=== PATIENT | female | born 1995 | race Caucasian/White ===

== ENCOUNTER 2023-04-15 16:19 | Emergency (ER) | payer OTHER ==
[~2023-04-15] VITALS: Ht 170.2 cm; Wt 73.6 kg
[2023-04-15 19:10] VITALS: O2SAT 95
[2023-04-15 20:03] VITALS: BP 122/78; TEMP 98.4; O2SAT 97
== END 2023-04-15 20:04 | disposition home or self-care (01) ==
LOC: M ED 16:19
DX: U07.1 COVID-19 (principal); R01.1 Cardiac murmur, unspecified

== ENCOUNTER 2023-10-10 19:10 | Emergency (ER) | payer OTHER ==
[~2023-10-10] VITALS: Ht 167.6 cm; Wt 73.0 kg
[2023-10-11 01:02] VITALS: BP 124/73; TEMP 97.4; O2SAT 98
== END 2023-10-11 01:36 | disposition home or self-care (01) ==
LOC: M ED 19:10
DX: M79.604 Pain in right leg (principal); I83.90 Asymptomatic varicose veins of unspecified lower extremity

== ENCOUNTER → 2024-01-24 | Outpatient (CLI) | payer OTHER ==
[2024-01-24 12:56] LABS: HEMATOCRIT 41.1 % (36.0-47.0); HEMOGLOBIN 13.7 g/dl (12.0-15.5); MEAN CORPUSCULAR HEMOGLOBIN 28.5 pg (27.0-33.0); MEAN CORPUSCULAR HGB CONC 33.3 g/dl (32.0-36.5); MEAN CORPUSCULAR VOLUME 85.6 fl (80.0-96.0); PLATELET COUNT, AUTOMATED 212 10^3/uL (150-450); WHITE BLOOD COUNT 8.6 10^3/uL (4.0-10.0)
[2024-01-24 13:28] LABS: HIV 1&2 SCREEN NEGATIVE (NEGATIVE)
[2024-01-24 13:36] LABS: HEPATITIS C VIRUS ABY INDEX < 0.02 INDEX (<0.8)
[2024-01-24 14:23] LABS: GC DNA AMPLIFICATION NEGATIVE (NEGATIVE)
== END ==
LOC: M PLALAB 10:23
PROVIDERS: ATTEND Obstetrics & Gynecology
DX: Z34.01 Encounter for supervision of normal first pregnancy, first trimester (principal); Z31.430 Encounter of female for testing for genetic disease carrier status for procreative management

== ENCOUNTER → 2024-02-21 | Outpatient (CLI) | payer OTHER | LOC: M PLALAB 08:38 | PROVIDERS: ATTEND Obstetrics & Gynecology | DX: Z34.80 Encounter for supervision of other normal pregnancy, unspecified trimester (principal) ==

== ENCOUNTER → 2024-03-22 | Outpatient (CLI) | payer OTHER | LOC: M WHC 07:52 | PROVIDERS: ATTEND Obstetrics & Gynecology | DX: Z34.92 Encounter for supervision of normal pregnancy, unspecified, second trimester (principal) ==

== ENCOUNTER → 2024-03-26 | Outpatient (REF) | payer OTHER | LOC: M SFHCWAGY 12:44 | PROVIDERS: ATTEND Obstetrics & Gynecology | DX: Z34.02 Encounter for supervision of normal first pregnancy, second trimester (principal) ==

== ENCOUNTER → 2024-03-30 | Outpatient (CLI) | payer OTHER | LOC: M LAB 08:40 | PROVIDERS: ATTEND Obstetrics & Gynecology | DX: Z34.80 Encounter for supervision of other normal pregnancy, unspecified trimester (principal) ==

== ENCOUNTER → 2024-04-01 | Outpatient (REF) | payer OTHER ==
[2024-04-01 14:57] LABS: Trichomonas vaginalis (AMP) NOT DETECTED (NEGATIVE)
[2024-04-01 15:20] LABS: GC DNA AMPLIFICATION NEGATIVE (NEGATIVE)
== END ==
LOC: M SFHCWAGY 12:42
PROVIDERS: ATTEND Obstetrics & Gynecology
DX: L29.2 Pruritus vulvae (principal); R30.0 Dysuria

== ENCOUNTER → 2024-04-20 | Outpatient (CLI) | payer OTHER ==
[2024-04-20 09:22] LABS: HEMATOCRIT 33.6 % (36.0-47.0); MEAN CORPUSCULAR HEMOGLOBIN 29.4 pg (27.0-33.0); MEAN CORPUSCULAR HGB CONC 32.7 g/dl (32.0-36.5); MEAN CORPUSCULAR VOLUME 89.8 fl (80.0-96.0); PLATELET COUNT, AUTOMATED 176 10^3/uL (150-450); RED BLOOD COUNT 3.74 10^6/uL (4.00-5.40); WHITE BLOOD COUNT 7.7 10^3/uL (4.0-10.0)
[2024-04-20 10:15] LABS: HIV 1&2 SCREEN NEGATIVE (NEGATIVE)
[2024-04-20 10:23] LABS: HEPATITIS C VIRUS ABY INDEX < 0.02 INDEX (<0.8)
[2024-04-20 10:36] LABS: GC DNA AMPLIFICATION NEGATIVE (NEGATIVE)
== END ==
LOC: M LAB 08:22
PROVIDERS: ATTEND Obstetrics & Gynecology
DX: Z34.02 Encounter for supervision of normal first pregnancy, second trimester (principal)

== ENCOUNTER → 2024-04-23 | Outpatient (CLI) | payer OTHER | LOC: M RAD 15:58 | PROVIDERS: ATTEND Obstetrics & Gynecology | DX: Z34.02 Encounter for supervision of normal first pregnancy, second trimester (principal) ==

== ENCOUNTER → 2024-04-30 | Outpatient (CLI) | payer OTHER | LOC: M PLALAB 10:39 | PROVIDERS: ATTEND Obstetrics & Gynecology | DX: Z34.02 Encounter for supervision of normal first pregnancy, second trimester (principal) ==

== ENCOUNTER 2024-07-03 17:29 | Outpatient (CLI) | payer OTHER ==
[~2024-07-03] VITALS: Ht 167.6 cm; Wt 79.6 kg
[2024-07-03] MEDS ORDERED: HOME MED LIST COMPLETE! XX SCH (17:55)
[2024-07-03] MEDS ORDERED: ACET500P3 PO (17:57)
[2024-07-03] MEDS ORDERED: OMEP10CASR PO (17:57)
[2024-07-03] MEDS ORDERED: PRENTAB9 PO (17:57)
[2024-07-03] MEDS: FIORICET TAB PO ONE (18:20)
== END 2024-07-03 19:08 | disposition home or self-care (01) ==
LOC: M LDO 17:29
PROVIDERS: ATTEND Advanced Practice Midwife
DX: O26.893 Other specified pregnancy related conditions, third trimester (principal); R51.9 Headache, unspecified; Z3A.34 34 weeks gestation of pregnancy
CPT/HCPCS: 59025; G0463

== ENCOUNTER 2024-07-09 19:59 | Outpatient (CLI) | payer OTHER ==
[~2024-07-09] VITALS: Ht 167.6 cm; Wt 81.0 kg
[~2024-07-09 19:59] MED LIST: ACET500P3 PO; OMEP10CASR PO; PRENTAB9 PO
[2024-07-09 20:15] VITALS: BP 128/79
== END 2024-07-09 20:43 | disposition home or self-care (01) ==
LOC: M LDO 19:59
PROVIDERS: ATTEND Specialist
DX: O36.8130 Decreased fetal movements, third trimester, not applicable or unspecified (principal); Z3A.34 34 weeks gestation of pregnancy
CPT/HCPCS: 59025; 76815; G0463

== ENCOUNTER → 2024-07-18 | Outpatient (REF) | payer OTHER | LOC: M SFHCWAGY 12:28 | PROVIDERS: ATTEND Obstetrics & Gynecology | DX: Z36.89 Encounter for other specified antenatal screening (principal); Z3A.36 36 weeks gestation of pregnancy ==

== ENCOUNTER 2024-07-22 20:28 | Outpatient (CLI) | payer OTHER ==
[~2024-07-22] VITALS: Ht 167.6 cm; Wt 85.1 kg
[2024-07-22 20:42] VITALS: BP 146/86
[2024-07-22 20:57] VITALS: BP 132/79
[2024-07-22 21:14] LABS: BASO % 0.3 % (0.0-1.0); EOS # 0.1 10^3/uL (0.0-0.5); HEMATOCRIT 32.4 % (36.0-47.0); HEMOGLOBIN 10.9 g/dl (12.0-15.5); LYMPH # 1.6 10^3/uL (1.5-5.0); LYMPH % 16.8 % (24.0-44.0); MEAN CORPUSCULAR HEMOGLOBIN 29.5 pg (27.0-33.0); MEAN CORPUSCULAR HGB CONC 33.6 g/dl (32.0-36.5); MEAN CORPUSCULAR VOLUME 87.8 fl (80.0-96.0); MONO % 10.6 % (2.0-8.0); NEUTROPHILS # 6.8 10^3/uL (1.5-8.5); NEUTROPHILS % 69.7 % (36.0-66.0); PLATELET COUNT, AUTOMATED 170 10^3/uL (150-450); RED BLOOD COUNT 3.69 10^6/uL (4.00-5.40); WHITE BLOOD COUNT 9.7 10^3/uL (4.0-10.0)
[2024-07-22 21:16] VITALS: BP 131/77
[2024-07-22 21:23] LABS: TOTAL PROTEIN,RANDOM URINE 18.8 MG/DL (0.0-14.0)
[2024-07-22 21:27] VITALS: BP 127/70
[2024-07-22 21:28] LABS: CREATININE,RANDOM URINE 79.2 MG/DL
[2024-07-22 21:38] LABS: URIC ACID 4.9 MG/DL (3.1-7.8)
[2024-07-22 21:40] LABS: LDH LACTATE DEHYDROGENASE 135 U/L (120-246)
[2024-07-22 21:41] LABS: ALT/SGPT 27 U/L (7.0-40); AST/SGOT 21 U/L (<34); BILIRUBIN,TOTAL 0.2 MG/DL (0.3-1.2); GLOMERULAR FILTRATION RATE > 60.0 (>60)
[2024-07-22 21:42] VITALS: BP 124/74
[2024-07-22] MEDS: diphenhydrAMINE 50MG CAP PO ONE (22:13)
[2024-07-22] MEDS: METOCLOPRAMIDE 10MG TAB PO ONE (22:13)
== END 2024-07-22 22:15 | disposition home or self-care (01) ==
LOC: M LDO 20:28
PROVIDERS: ATTEND Advanced Practice Midwife
DX: O13.3 Gestational [pregnancy-induced] hypertension without significant proteinuria, third trimester (principal); O99.352 Diseases of the nervous system complicating pregnancy, second trimester; G43.009 Migraine without aura, not intractable, without status migrainosus; R60.9 Edema, unspecified; Z3A.36 36 weeks gestation of pregnancy
CPT/HCPCS: 59025; 76815; 82247; 82570; 83615; 84156; 84450; 84460; 84550; 85025; G0463

== ENCOUNTER 2024-07-23 22:20 | Outpatient (CLI) | payer OTHER ==
[~2024-07-23] VITALS: Ht 167.6 cm; Wt 83.7 kg
[2024-07-23 22:41] VITALS: BP 138/83
[2024-07-23] MEDS ORDERED: HOME MED LIST COMPLETE! XX SCH (22:45)
[2024-07-23] MEDS ORDERED: LR 1,000 ML IV SCH (22:55)
[2024-07-23] MEDS: LACTATED RINGER'S 1000 ML IV STA (23:05)
[2024-07-23] MEDS: ONDANSETRON 4MG 2ML VIAL IV PRN (23:12)
[2024-07-23 23:23] LABS: HEMATOCRIT 34.5 % (36.0-47.0); HEMOGLOBIN 11.4 g/dl (12.0-15.5); MEAN CORPUSCULAR HEMOGLOBIN 28.4 pg (27.0-33.0); PLATELET COUNT, AUTOMATED 188 10^3/uL (150-450); RED BLOOD COUNT 4.01 10^6/uL (4.00-5.40); WHITE BLOOD COUNT 9.1 10^3/uL (4.0-10.0)
[2024-07-23 23:30] LABS: APPEARANCE, URINE CLOUDY (CLEAR); BACTERIA, URINE AUTO 1+ (NEGATIVE); BILIRUBIN, URINE AUTO NEGATIVE (NEGATIVE); BLOOD, URINE BLOOD NEGATIVE (NEGATIVE); COLOR, URINE YELLOW (YELLOW); GLUCOSE, URINE (UA) AUTO NEGATIVE (NEGATIVE); KETONE, URINE AUTO NEGATIVE (NEGATIVE); LEUKOCYTE ESTERASE, URINE AUTO 2+ (NEGATIVE); MUCUS, URINE SMALL (NEGATIVE); NITRITE, URINE AUTO NEGATIVE (NEGATIVE); PROTEIN, URINE AUTO NEGATIVE (NEGATIVE); RBC, URINE AUTO 2 /HPF (0-3); SPECIFIC GRAVITY URINE AUTO 1.016 (1.002-1.035); SQUAMOUS EPITHELIAL CELL UR AU 22 /HPF (0-6); UROBILINOGEN, URINE AUTO 0.2 mg/dL (0.0-2.0); WBC, URINE AUTO 6 /HPF (0-3)
[2024-07-23 23:58] LABS: AMYLASE 80 U/L (30-118)
[2024-07-24 00:03] LABS: ALBUMIN 2.6 G/DL (3.2-5.2); ALKALINE PHOSPHATASE 81 U/L (35-104); ALT/SGPT 29 U/L (7.0-40); AST/SGOT 46 U/L (<34); BILIRUBIN,TOTAL 0.2 MG/DL (0.3-1.2); BLOOD UREA NITROGEN 9 MG/DL (9-23); CARBON DIOXIDE LEVEL 21 MMOL/L (20-31); CHLORIDE LEVEL 109 MMOL/L (98-107); CREATININE FOR GFR 0.35 MG/DL (0.55-1.30); GLOMERULAR FILTRATION RATE > 60.0 (>60); GLUCOSE, FASTING 80 MG/DL (60-100); LIPASE 36 U/L (12-53); POTASSIUM SERUM 5.2 MMOL/L (3.5-5.1); SODIUM LEVEL 140 MMOL/L (136-145); TOTAL PROTEIN 6.1 G/DL (5.7-8.2)
[2024-07-24 00:18] VITALS: BP 125/76
== END 2024-07-24 01:00 | disposition home or self-care (01) ==
LOC: M LDO 22:20
PROVIDERS: ATTEND Obstetrics & Gynecology
DX: O26.893 Other specified pregnancy related conditions, third trimester (principal); O21.8 Other vomiting complicating pregnancy; R19.7 Diarrhea, unspecified; O13.3 Gestational [pregnancy-induced] hypertension without significant proteinuria, third trimester; Z3A.37 37 weeks gestation of pregnancy
CPT/HCPCS: 59025; 80053; 81001; 82150; 83690; 85027; 96374; G0463; J2405

== ENCOUNTER → 2024-07-24 | Outpatient (CLI) | payer OTHER ==
[~2024-07-24] MED LIST changes: +ACET-683 PO; +IBUP80TA PO; +SERT25TA85 PO
== END ==
LOC: M WHC 10:36
PROVIDERS: ATTEND Obstetrics & Gynecology
DX: O28.8 Other abnormal findings on antenatal screening of mother (principal)

== ENCOUNTER 2024-07-25 07:19 | Inpatient (IN) | payer OTHER ==
[~2024-07-25] VITALS: Ht 167.6 cm; Wt 85.1 kg
[2024-07-25] VITALS (26 sets, daily range): BP systolic 110–167; BP diastolic 59–91
[~2024-07-25 07:19] MED LIST changes: -ACET-683 PO; -IBUP80TA PO; -SERT25TA85 PO
[2024-07-25] MEDS ORDERED: HOME MED LIST COMPLETE! XX SCH (07:35)
[2024-07-25 08:30] LABS: HEMOGLOBIN 11.2 g/dl (12.0-15.5); MEAN CORPUSCULAR HEMOGLOBIN 28.6 pg (27.0-33.0); MEAN CORPUSCULAR HGB CONC 32.9 g/dl (32.0-36.5); MEAN CORPUSCULAR VOLUME 86.7 fl (80.0-96.0); PLATELET COUNT, AUTOMATED 169 10^3/uL (150-450); RED BLOOD COUNT 3.92 10^6/uL (4.00-5.40); WHITE BLOOD COUNT 7.9 10^3/uL (4.0-10.0)
[2024-07-25 09:29] LABS: HIV 1&2 SCREEN NEGATIVE (NEGATIVE)
[2024-07-25] MEDS ORDERED: OXYTOCIN INJ 10UNITS/ML 1ML VIAL IV PRN (11:15)
[2024-07-25] MEDS: miSOPROStol 25MCG 1/4 TABLET BUC ONE (11:37)
[2024-07-25] MEDS: LR 1,000 ML IV SCH (16:29)
[2024-07-25] MEDS: OXYTOCIN DRIP 30 UNITS in IV 1 EA IV SCH (16:29)
[2024-07-25] MEDS ORDERED: ePHEDrine SULFATE 25 MG/5 ML(5MG/ML) SYRINGE IVP PRN (21:25)
[2024-07-25] MEDS ORDERED: NALOXONE INJ 0.4MG/1ML VIAL IV PRN (21:25)
[2024-07-25] MEDS ORDERED: LR 500 ML IV PRN (21:25)
[2024-07-25] MEDS ORDERED: diphenhydrAMINE 50MG/ML VIAL IV PRN (21:25)
[2024-07-25] MEDS ORDERED: EPIDURAL/PCA KEYS XX PRN (21:25)
[2024-07-25] MEDS: FENTANYL/ROPIVACAINE/NACL BAG 100 ML EPIDURAL SCH (21:28)
[2024-07-26] VITALS (13 sets, daily range): BP systolic 96–153; BP diastolic 52–78; O2SAT 96–98
[2024-07-26] MEDS: ONDANSETRON 4MG 2ML VIAL IV PRN (04:11)
[2024-07-26 12:10] LABS: CORD GAS O2 SAT A < 15.0 %; CORD GAS PO2 A > 700.0 mmHg
[2024-07-26 12:12] LABS: CORD GAS ABE A -10.4; CORD GAS HCO3 A 22.8 MMOL/L; CORD GAS PCO2 A 87.5 mmHg; CORD GAS PH A 7.034 UNITS; CORD GAS TCO2 A 25.5 MMOL/L
[2024-07-26 12:13] LABS: CORD GAS ABE V -9.1; CORD GAS HCO3 V 21.5 MMOL/L; CORD GAS O2 SAT V < 0.0 %; CORD GAS PCO2 V 65.8 mmHg; CORD GAS PH V 7.132 UNITS; CORD GAS PO2 V < 0.0 mmHg; CORD GAS TCO2 V 23.5 MMOL/L
[2024-07-26] MEDS ORDERED: ACETAMINOPHEN 325 MG TAB PO PRN (12:50)
[2024-07-26] MEDS ORDERED: METHYLERGONOVINE MALEATE 0.2 MG TAB PO PRN (12:50)
[2024-07-26] MEDS ORDERED: ANUSOL HC CREAM 30GM TOP PRN (12:50)
[2024-07-26] MEDS ORDERED: RHOGAM 300MCG (1500IU) INJ IM SCH (12:50)
[2024-07-26] MEDS: IBUPROFEN 800 MG TAB PO PRN (14:48)
[2024-07-26] MEDS: DIBUCAINE 1% OINTMENT 30GM TOP PRN (19:34)
[2024-07-26] MEDS: ACETAMINOPHEN 500 MG TAB PO PRN (19:35)
[2024-07-27 06:00] VITALS: BP 121/64; O2SAT 98
[2024-07-27] MEDS: PRENATAL VITAMINS CHEWABLE TABLET PO SCH (09:00)
[2024-07-27] MEDS: IBUPROFEN 600MG TAB PO PRN (09:40)
[2024-07-27] MEDS: DOCUSATE SODIUM 100MG CAPSULE PO PRN (09:41)
[2024-07-27 18:21] VITALS: BP 140/64; O2SAT 99
[2024-07-27] MEDS ORDERED: DOCUSATE SODIUM 100MG CAPSULE PO PRN (19:00)
[2024-07-27] MEDS ORDERED: MOM 30ML SUSPENSION UDC PO PRN (19:35)
[2024-07-28 06:00] VITALS: BP 130/71; O2SAT 99
[2024-07-28] MEDS: MEASLES,MUMPS,RUBELLA VACCINE INJ (MMR-II) SC.IMMUN ONE (09:00)
[2024-07-28] MEDS: SERTRALINE HCL 25 MG TABLET PO ONE (12:40)
[2024-07-28] MEDS ORDERED: IBUP80TA PO (13:17)
[2024-07-28] MEDS ORDERED: ACET-683 PO (13:17)
[2024-07-28] MEDS ORDERED: SERT25TA85 PO (13:17)
== END 2024-07-28 14:10 | disposition home or self-care (01) | DRG 807 ==
LOC: M LDI 07:19 → M OBS 07-26 14:58
PROVIDERS: ADMIT Obstetrics & Gynecology; ATTEND Advanced Practice Midwife
PROC: 3E0P7GC Introduction of Other Therapeutic Substance into Female Reproductive, Via Natural or Artificial Opening (ICD-10-PCS; 2024-07-25)
PROC: 10907ZC Drainage of Amniotic Fluid, Therapeutic from Products of Conception, Via Natural or Artificial Opening (ICD-10-PCS; 2024-07-25)
PROC: 10E0XZZ Delivery of Products of Conception, External Approach (ICD-10-PCS; principal; 2024-07-26)
PROC: 0KQM0ZZ Repair Perineum Muscle, Open Approach (ICD-10-PCS; 2024-07-26)
DX: O13.4 Gestational [pregnancy-induced] hypertension without significant proteinuria, complicating childbirth (principal); Z37.0 Single live birth; Z3A.37 37 weeks gestation of pregnancy; O70.1 Second degree perineal laceration during delivery

== ENCOUNTER → 2024-12-23 | Outpatient (REF) ==
[~2024-12-23] MED LIST changes: +ACET-683 PO; +IBUP80TA PO; +SERT25TA85 PO
== END ==
LOC: M EMP 08:17
PROVIDERS: ATTEND Family Medicine
DX: Z11.52 Encounter for screening for COVID-19 (principal)

== ENCOUNTER → 2025-02-20 | Outpatient (REF) | payer OTHER | LOC: M SFHCWAGY 10:08 | PROVIDERS: ATTEND Advanced Practice Midwife | DX: Z12.4 Encounter for screening for malignant neoplasm of cervix (principal) ==

== ENCOUNTER → 2025-03-05 | Outpatient (REF) | payer OTHER | LOC: M LAB REF 17:56 | PROVIDERS: ATTEND Plastic Surgery Surgery of the Hand | DX: D18.01 Hemangioma of skin and subcutaneous tissue (principal) ==

== ENCOUNTER → 2025-03-13 | Outpatient (CLI) | payer OTHER | LOC: M EKG 09:03 | PROVIDERS: ATTEND Internal Medicine Cardiovascular Disease | DX: I49.40 Unspecified premature depolarization (principal) ==

== ENCOUNTER → 2025-04-14 | Outpatient (CLI) | payer OTHER | LOC: M CARPUL 15:00 | PROVIDERS: ATTEND Internal Medicine Cardiovascular Disease | DX: R94.31 Abnormal electrocardiogram [ECG] [EKG] (principal); I35.9 Nonrheumatic aortic valve disorder, unspecified ==